=== PATIENT | male | born 1950 | race Two or more races ===

== ENCOUNTER 2016-07-06 09:37 | Emergency (ER) | payer MEDICARE ==
[2016-07-06 10:55] LABS: APPEARANCE CLEAR (CLEAR); BILIRUBIN NEGATIVE (NEGATIVE); COLOR YELLOW (YELLOW); GLUCOSE NEGATIVE (NEGATIVE); KETONE NEGATIVE (NEGATIVE); LEUKOCYTE ESTERASE NEGATIVE (NEGATIVE); NITRITE NEGATIVE (NEGATIVE); PROTEIN NEGATIVE (NEGATIVE); SPECIFIC GRAVITY 1.015 (1.005-1.020); UROBILINOGEN NORMAL (NORMAL)
[2016-07-06 10:57] LABS: BACTERIA FEW /hpf (NONE SEEN); EPITHELIAL CELLS RARE /hpf (0-5); RED CELLS - URINE 0-5 /hpf (0-5); WHITE CELLS - URINE NSEEN /hpf (0-5)
== END 2016-07-06 11:42 | disposition home or self-care (01) ==
LOC: D.ER 09:37
PROVIDERS: Emergency Medicine
DX: R33.9 Retention of urine, unspecified (principal)